=== PATIENT | female | born 1965 | race Caucasian/White ===

== ENCOUNTER 2019-02-24 10:10 | Observation (INO) | payer OTHER, SELFPAY ==
--- NOTE | ~2019-02-24 | XR_ITS ---
EXAMINATION: XR abdomen/kub 1V DATE: 02/24/2019 10:30 INDICATION: Foreign body. Pill contained inserted into the rectum. TECHNIQUE: A supine view of the abdomen on 2 radiographs was obtained. COMPARISON: 02/24/2019 at 4:59 AM FINDINGS: The cylindrical metallic foreign body projects over the central pelvis slightly more cephalad into th e left relative to its position on the prior study. This appears to at least in part to increasing di stention of the bladder. No interval change in moderate amount of stool scattered throughout the prox imal colon. No dilated loops of gas-filled bowel to suggest obstruction. IMPRESSION: 1. No significant interval change in a 5 cm diameter corresponding to metallic foreign body which lik gualberto remains at the rectum or distal sigmoid colon. Reviewed, dictated and finalized at location A. S TRANSFER CLERK IMPRESSION: 1. No significant interval change in a 5 cm diameter corresponding to metallic foreign body which likely remains at the rectum or distal sigmoid colon.
--- NOTE | 2019-02-24 10:14 | ED.GENADULT ---
HPI - General Adult General Chief complaint: Skin/Abscess/Foreign Body Stated complaint: Foreign Body Time Seen by Provider: 02/24/19 10:12 Source: patient and RN notes reviewed Mode of arrival: ambulatory Limitations: no limitations History of Present Illness HPI narrative: Pt is a 54 y/o female who presents to the ED, via law enforcement, with c/o a foreign object inside her rectum. Law enforcement states the body scanner at the police station showed there was a foreign object located inside the pt that should not be present, which had been done this morning. The pt reported she had ?a can of Fentanyl stuck in my butt.? Upon examination at the ED, the bottle could not be seen in the rectum. However, The pt denies the bottle being in the vagina. She denies any pain anywhere else in her body. complaint: Foreign object in rectum Onset (ago): hour(s) (this morning) Radiation: non-radiation Associated symptoms: denies other symptoms Related Data Home Medications Medication Instructions Recorded Confirmed No Home Medications 02/24/19 02/24/19 Allergies Allergy/AdvReac Type Severity Reaction Status Date / Time No Known Allergies Allergy Verified 02/24/19 04:55 Review of Systems Review of Systems: All systems reviewed & are unremarkable except as noted in HPI and below Constitutional: Constitutional: Denies other (pain anywhere else in her body) Gastrointestinal: Gastrointestinal: Reports other (foreign object in rectum) [facility] Past Medical History Medical History (Updated 02/24/19 @ 17:44 by Dae Rivera MD) Breast implant leak Narcotic abuse snorts fentanyl, last used yesterday Surgical History Surgical History (Updated 02/24/19 @ 16:11 by Imani Osorio NP) History of appendectomy History of lumpectomy Family History Family History (Updated 02/24/19 @ 16:12 by Imani Osorio NP) Mother Cancer Father Acute myocardial infarction Sibling First degree murder Other Breast cancer Social History Social History (Updated 02/24/19 @ 16:13 by Imani Osorio NP) Social History: The patient stated that she is living in the home that she grew up in and her mother moved out. She has 3 adult children. She is currently working at a [employer]. She has no power employment law attorney. She is a full code. Patient told me that the drugs that were in her rectum did not belong to her and that she had not used drugs in many years since she was a teenager. She she told me that she has been in trouble for drugs in the past. She showed ER that she last used fentanyl yesterday. She is twice. Smoking packs per day: 1 Smoking cigarettes per day: 20.0 Years smoked: 18 Smoking pack-years: 18.00 Smoking status: Current every day smoker Tobacco type: cigarettes Alcohol intake: never Substance use: current Substance use type: tranquilizers Other substance usage details: Fentanyl Living arrangements: with family Gender identity (if verbalized by the patient): Female Spiritual care concerns: No Agree to blood products: Yes Exam Narrative: Exam Narrative: GENERAL: Well-appearing, well-nourished, and in no acute distress. HEAD: Normocephalic, atraumatic. ENT: Mucous membranes moist. CHEST: Clear to auscultation. No respiratory distress. HEART: Regular rate and rhythm. Normal peripheral pulses. ABDOMEN: Soft, nontender, nondistended. : Normal external genitalia, normal-appearing cervix and vaginal vault free of foreign body. No discharge or vaginal bleeding. EXTREMITIES: Normal range of motion. No edema. SKIN: Warm, dry, no rash. NEURO: Alert and oriented x3. Course Consultations Consultation #1: Discussed case with hospitalist. Accepted for admission. Date: 02/24/19 Time: 11:32 Vital Signs Vital signs: Vital Signs Temperature 98.0 F 02/24/19 10:17 Pulse Rate 84 02/24/19 10:17 Respiratory Rate 16 02/24/19 10:17 Blood Pressure 134/91 H 02/24/19
[2019-02-24 10:17] VITALS: BP 134/91; PULSE 84; RESP 16; TEMP 36.7; O2SAT 98
[2019-02-24] MEDS: PEG (High)/E-LYTE SOLN 4,000 ML BTL 4000 ML PO (11:29)
--- NOTE | 2019-02-24 12:49 | PC.NURSE ---
no BM yet. patient has drank appx half of the prep but had fallen asleep. woke her and encouraged her to continue drinking
--- NOTE | 2019-02-24 13:37 | ADMGEN ---
This patient, Anaya Hawk, was admitted to 2 Medical Room 255-01. Patient/family oriented to hospital policies and general routines including ID bracelet, bed and alarms, visiting hours, pain management, procedures, bathroom and other care routines, personal items, smoking policy, room service/diet, and visiting hours. Valuables list has been completed. Information on how to activate the Rapid Response Team has been discussed. Patient/Family are encouraged to report perceived risks to care and to ask questions if they do not understand what they are told or what they should do.
[2019-02-24 14:00] VITALS: BP 140/87; PULSE 88; RESP 16; TEMP 36.5; O2SAT 96
--- NOTE | 2019-02-24 15:31 | WPDGIPROGNO ---
Progress Note: A&P Additional Plan pt passed foreign body with laxative prep.. will allow diet, disposition for discharge per primary care, hospitallist service Subjective Date/time seen: 02/24/19 15:31 Objective Data Vital Signs Vital Signs: Vital Signs - 24 hr 02/24/19 10:17 02/24/19 14:00 Temperature 36.7 C 36.5 C Pulse Rate 84 88 Respiratory Rate 16 16 Blood Pressure 134/91 H 140/87 Pulse Oximetry 98 96 Meds/Results Medications: Active Medications Generic Name Dose Route Start Last Admin Trade Name Freq PRN Reason Stop Dose Admin Acetaminophen 650 mg in 65 mls @ 260 mls/hr 02/24/19 11:44 Ofirmev 650 Mg Ivpb IVPB 02/25/19 11:45 Q6H PRN Mild Pain (1-3) or Fever Ondansetron HCl 4 mg 02/24/19 11:44 Zofran Inj IV PUSH Q4H PRN Nausea Radiology Results: ITS Impressions Abdomen X-Ray 02/24/19 10:38 IMPRESSION: 1. No significant interval change in a 5 cm diameter corresponding to metallic foreign body which likely remains at the rectum or distal sigmoid colon.
--- NOTE | 2019-02-24 16:00 | PM.IMHP ---
H&P: HPI History of Present Illness Chief complaint: rectal foreign body Narrative: Anaya Hawk is a 54 year old female who was brought in early this morning. The patient stated that her friend was parked in the handicap parking space at [facility] and the maintenance scheduler turned on the lights and her friend was trying to hide drugs. She stated that her friend told her to put of canister upper rectum. Her friend was doing the same. The patient stated that she has not used drugs in many years. According to the ER notes patient stated that she had something in her behind that did not belong to her. Abdominal x-ray was read as 1.5 cm diameter cylinder metallic foreign body projecting over the rectum. Dr. Dillard was a consult who saw the patient. A flex sigmoidoscopy with anesthesia was performed and the object was not obtained. The patient was given prep for colonoscopy (GoLYTELY). The patient then passed the object and it was placed in the safe here at the hospital. The patient is hungry and would like to eat at this time she is awake and talkative. I spoke with my collaborative about patient's discharge. Patient is okay to be discharged to home at this time. I was told by nursing supervisor refractory products that the container was found intact. Patient is awake although she is somewhat sleepy. She is able to answer questions appropriately. Patient was admitted for brief period time to retrieve this item. Date of service is 02/24/2019. This is a short-stay summary. 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 Musculoskeletal: Musculoskeletal: Reports no additional musculoskeletal complaints Integumentary/Breasts: Skin/Breast: Reports system reviewed and no additional complaints, except as docu and Reports as per HPI Neurologic: Reports system reviewed and no additional complaints, except as documented, Reports as per HPI and Reports Normal hearing present Psychiatric: Psychiatric: Reports no additional psychiatric complaints and Reports as per HPI Endocrine: Endocrine: Reports no additional endocrine complaints Hematologic/Lymphatic: Hematologic/Lymphatic: Reports no additional hematologic/lymphatic complaints Allergic/Immunologic: Allergic/Immunologic: Reports no additional allergic/immunologic complaints [facility] Past Medical History Medical History (Updated 02/24/19 @ 16:11 by Imani Osorio NP) Breast implant leak Narcotic abuse snorts fentanyl, last used yesterday Surgical History Surgical History (Updated 02/24/19 @ 16:11 by Imani Osorio NP) History of appendectomy History of lumpectomy Family History Family History (Updated 02/24/19 @ 16:12 by Imani Osorio NP) Mother Cancer Father Acute myocardial infarction Sibling First degree murder Other Breast cancer Social History Social History (Updated 02/24/19 @ 16:13 by Imani Osorio NP) Social History: The patient stated that she is living in the home that she grew up in and her mother moved out. She has 3 adult children. She is currently working at a [employer]. She has no power consumer attorney. She is a full code. Patient told me that the drugs that were in her rectum did not belong to her and that she had not used
== END 2019-02-24 17:04 | disposition home or self-care (01) ==
LOC: ANHED 11:47 → ANH2MED 12:54
PROVIDERS: Admitting Provider Internal Medicine; Emergency Provider Emergency Medicine; Visit Provider Internal Medicine
DX: T18.5XXA Foreign body in anus and rectum, initial encounter (principal); X58.XXXA Exposure to other specified factors, initial encounter; F11.10 Opioid abuse, uncomplicated; F17.210 Nicotine dependence, cigarettes, uncomplicated; Z98.890 Other specified postprocedural states
CPT/HCPCS: 74018; 74021; 99285; A9270; G0378; J2001; J2704; J7120

== ENCOUNTER 2023-12-30 02:05 | Emergency (ER) | payer OTHER, SELFPAY ==
--- NOTE | 2023-12-30 02:13 | ECG_ITS ---
Test Date: 2023-12-30 02:13:18 Measurements Intervals [place] Rate: 83 P: 75 [place]: 139 QRS: 68 QRSD: 82 T: 68 QT: 395 QTc: 465 Interpretive Statements SINUS RHYTHM VOLTAGE CRITERIA FOR LVH BASELINE ARTIFACT- I, II, III, AVR, AVL, AVF BORDERLINE ECG No previous ECG available for comparison Electronically Signed On 12-30-2023 13:52:30 [employer]AND BUFFER by Jase Benoit D.O.
--- NOTE | 2023-12-30 03:39 | ER_ITS ---
This report was moved to the correct visit on 01/13/2024. The original report was signed by Thomas Segovia MD on 12/30/23 0352. HPI - Chest Pain General Chief Complaint: Chest Pain Source: patient Mode of arrival: EMS Limitations: no limitations History of Present Illness HPI narrative: 58-year-old with a history of fentanyl abuse was brought in by EMS with the complaints of chest pain. Patient states that she has bad around had chest with started soon after she got arrested by police. She denies any shortness of breath. He has no previous history of CAD. MD complaint: chest pain Timing of current episode: constant Onset: associated with drug use and other (During arrest ) Pain location: other (entire chest ) Pain radiation: none Quality: tightness Relieving factors: nothing Exacerbating factors: nothing Risk Factors Coronary artery disease risk factors: none Related Data Home Medications Medication Instructions Recorded Confirmed No Home Medications 02/24/19 02/24/19 Allergies Allergy/AdvReac Type Severity Reaction Status Date / Time No Known Allergies Allergy Verified 02/24/19 04:55 Review of Systems Review of Systems: All systems reviewed & are unremarkable except as noted in HPI and below Constitutional: Constitutional: Reports no additional constitutional complaints Eyes: Eyes: Reports no additional eye complaints ENT: Reports system reviewed and no additional complaints, except as documented Cardiovascular: Cardiovascular: Reports as per HPI Respiratory: Respiratory: Reports no additional respiratory complaints Musculoskeletal: Musculoskeletal: Reports no additional musculoskeletal complaints Neurologic: Reports system reviewed and no additional complaints, except as documented Endocrine: Endocrine: Reports no additional endocrine complaints PMFSH Past Medical History Medical History Breast implant leak Narcotic abuse snorts fentanyl, last used yesterday Surgical History Surgical History History of appendectomy History of lumpectomy Family History Family History Mother Cancer Father Acute myocardial infarction Sibling First degree murder Other Breast cancer Social History Social History Social History: The patient stated that she is living in the home that she grew up in and her mother moved out. She has 3 adult children. She is currently working at a [employer]. She has no power employment attorney. She is a full code. Patient told me that the drugs that were in her rectum did not belong to her and that she had not used drugs in many years since she was a teenager. She she told me that she has been in trouble for drugs in the past. She showed ER that she last used fentanyl yesterday. She is twice. Smoking packs per day: 1 Smoking cigarettes per day: 20.0 Years smoked: 18 Smoking pack-years: 18.00 Smoking status: Current every day smoker Tobacco type: cigarettes Alcohol intake: never Substance use: current Substance use type: tranquilizers Other substance usage details: Fentanyl Living arrangements: with family Gender identity (if verbalized by the patient): Female Spiritual care concerns: No Agree to blood products: Yes Exam Narrative: GENERAL: Well-appearing, well-nourished, and in no acute distress. HEAD: Normocephalic, atraumatic. EYES: PERRLA and EOMI. . NECK: Supple. CHEST: Clear to auscultation. No respiratory distress. HEART: Regular rate and rhythm. No murmur heard. Normal peripheral pulses. ABDOMEN: Soft, nontender, nondistended, normal active bowel sounds. EXTREMITIES: Normal range of motion. No edema. multiple scars on the left fore arm SKIN: Warm, dry, no rash. NEURO: No focal deficits. Alert and oriented x3. PSYCH: Normal mood and affect. MDM - Chest Pain Differential Diagnosis Differential diagnosis: Likely stable angina, unstable angina pectoris, atypical chest pain, chest pain and other (anxiety) Medical Records Data Attestation: I reviewed the patient's medical records. Lab Data Attestation: I reviewed the patient's lab results. ECG Data EKG #1: ECG completion date: 12/30/23 ECG completion time: 02:13 EKG Interpretation: normal rate (83), no ectopy, no ST changes, normal QT and NL axis Discharge Plan Discharge Clinical Impression: Chest pain, Narcotic abuse Patient Disposition: Home, Self-Care Condition: Stable Instructions: Chest Pain (ED) Prescriptions: No Action No Home Medications Follow-up/Referrals: UNKNOWN,DOCTOR [Primary Care Provider] - Matt Ruelas MD [Physician] - Time of Disposition: 03:51 This report may have been done utilizing a voice recognition system. Attempts have been made to correct errors. However, there may be uncorrected grammatical, spelling, and recognition errors present. Report Initialized date/time: Thomas Segovia MD 12/30/23 / 0339 Electronically signed by: Thomas Segovia MD 12/30/23 0352 [facility]
[2023-12-30 03:45] LABS: Alanine Aminotransferase 20 U/L (6-35); Albumin Level 4.2 g/dL (3.5-5.1); Alkaline Phosphatase 72 U/L (38-126); Anion Gap 6 mmol/L (4-12); Aspartate Amino Transferase 37 U/L (14-36); Bilirubin,Total 0.7 mg/dL (0.2-1.3); Blood Urea Nitrogen 11 mg/dL (7-17); Calcium 8.9 mg/dL (8.4-10.2); Carbon Dioxide 28 mmol/L (22-30); Chloride 105 mmol/L (98-107); Estimated Glomerular Filt Rate > 60; Glucose 120 mg/dL (65-110); Potassium 3.8 mmol/L (3.4-5.0); Sodium 139 mmol/L (137-145); Troponin I < 0.012 ng/mL (0.000-0.034)
--- NOTE | 2023-12-30 03:52 | PC.NURSE ---
see downtime charting
[2023-12-30 03:53] VITALS: O2SAT 98
[2023-12-30 03:53] LABS: Add Urine Microscopic? YES; Appearance Urine Clear (Clear); Bacteria Urine None Seen /hpf; Bilirubin Urine Negative (Negative); Blood Urine Negative (Negative); Color Urine Dark Yellow (Yellow); Glucose Urine UA Negative (Negative); Ketones Urine Trace mg/dL (Negative); Leukocyte Esterase Ur Trace LEU/UL (Negative); Nitrate Urine Negative (Negative); Non Pathogenic Casts 0-2; Protein Urine Trace mg/dL (Negative); RBC Urine 0-2 /hpf (0-2); Specific Grav Ur 1.024 (1.001-1.035); Squamous Epithelial Cell Urine None Seen /hpf (Few); WBC Urine 0-5 /hpf (0-3)
[2023-12-30 03:56] LABS: Basophils Percent Auto 1.1 % (0.2-1.2); Eosinophils Absolute Auto 0.1 K/mm3 (0-0.3); Eosinophils Percent Auto 1.6 % (0-4.4); Hematocrit 40.6 % (37.0-47.0); Immature Granulocyte Absolute 0.02 K/mm3 (0.00-0.031); Immature Granulocyte Percent A 0.5 % (0-0.5); Lymphocytes Absolute Auto 0.76 K/mm3 (0.9-3.2); Lymphocytes Percent Auto 20.2 % (18.3-44.2); Mean Corpuscular HGB Conc 34.5 g/dl (32-36); Mean Corpuscular Hemoglobin 30.4 pg (26-34); Mean Corpuscular Volume 88.1 fl (80-100); Mean Platelet Volume 10.3 fl (7.4-10.4); Monocytes Absolute Auto 0.5 K/mm3 (0.1-0.6); Monocytes Percent Auto 12.2 % (2.6-8.5); Neutrophils Absolute Auto 2.4 K/mm3 (1.3-6.7); Neutrophils Percent Auto 64.4 % (45.5-73.1); Platelet Count Result 203 k/mm3 (150-375); Red Blood Count 4.61 M/mm3 (4.2-5.4); Red Cell Distribution Width 12.5 % (11.5-14.5); White Blood Count 3.8 K/mm3 (4.5-10.0)
[2023-12-30 04:36] VITALS: BP 161/79; PULSE 80; RESP 16; O2SAT 98
--- NOTE | 2024-01-18 06:08 | PC.NURSE ---
see downtime charting.
== END 2023-12-30 03:59 | disposition home or self-care (01) ==
PROVIDERS: Emergency Provider Family Medicine
DX: R07.9 Chest pain, unspecified (principal); F11.10 Opioid abuse, uncomplicated; F17.210 Nicotine dependence, cigarettes, uncomplicated
CPT/HCPCS: 36415; 80053; 81001; 84484; 85025; 93005; 99281; 99284

== ENCOUNTER 2024-01-01 12:03 | Emergency (ER) | payer OTHER, SELFPAY ==
[2024-01-01 12:04] VITALS: PULSE 67; RESP 16; TEMP 36.6; O2SAT 96
[2024-01-01 12:10] VITALS: RESP 16
--- NOTE | 2024-01-01 12:10 | ECG_ITS ---
Test Date: 2024-01-01 12:12:14 Measurements Intervals [place] Rate: 65 P: 14 [place]: 120 QRS: 61 QRSD: 79 T: 57 QT: 422 QTc: 440 Interpretive Statements SINUS RHYTHM VOLTAGE CRITERIA FOR LVH BORDERLINE ECG Compared to ECG 12/30/2023 02:13:18 No significant changes Electronically Signed On 01-01-2024 16:17:58 BILLBOARD INSTALLER by Jase Benoit D.O.
--- NOTE | 2024-01-01 12:28 | ED_ITS ---
HPI - General Adult General Chief complaint: Unspecified Stated complaint: unwell Time Seen by Provider: 01/01/24 12:17 History of Present Illness HPI narrative: Patient 58-year-old female who presents emergency department with chief complaint of chest and the body aches. The patient reports that she was at the police station turn herself in for warrant and reports that she started having chest pain also reports she has a headache patient reports that she does have prior history of fentanyl abuse but reports that she has not used in a long time a week again patient reports that she has had no fever reports no cough reports she has been treated for pneumonia recently the patient reports she is also undergoing treatment for hepatitis Related Data Home Medications Medication Instructions Recorded Confirmed No Home Medications 02/24/19 02/24/19 Allergies Allergy/AdvReac Type Severity Reaction Status Date / Time No Known Allergies Allergy Verified 02/24/19 04:55 Review of Systems Review of Systems: A 10 system review of systems was completed on the patient and is negative except for what is stated in the HPI. Nursing and ancillary documentation was reviewed. [facility] Past Medical History Medical History Breast implant leak Narcotic abuse snorts fentanyl, last used yesterday Surgical History Surgical History History of appendectomy History of lumpectomy Family History Family History Mother Cancer Father Acute myocardial infarction Sibling First degree murder Other Breast cancer Social History Social History Social History: The patient stated that she is living in the home that she grew up in and her mother moved out. She has 3 adult children. She is currently working at a [employer]. She has no power corporate attorney. She is a full code. Patient told me that the drugs that were in her rectum did not belong to her and that she had not used drugs in many years since she was a teenager. She she told me that she has been in trouble for drugs in the past. She showed ER that she last used fentanyl yesterday. She is twice. Smoking packs per day: 1 Smoking cigarettes per day: 20.0 Years smoked: 18 Smoking pack-years: 18.00 Smoking status: Current every day smoker Tobacco type: cigarettes Alcohol intake: never Substance use: current Substance use type: tranquilizers Other substance usage details: Fentanyl Living arrangements: with family Gender identity (if verbalized by the patient): Female Spiritual care concerns: No Agree to blood products: Yes Exam Narrative: GENERAL: Well-appearing, well-nourished, and in no acute distress. HEAD: Normocephalic, atraumatic. EYES: PERRLA and EOMI. ENT: Nares clear, no rhinorrhea or epistaxis. Mucous membranes moist. NECK: Supple. CHEST: Clear to auscultation. No respiratory distress. HEART: Regular rate and rhythm. No murmur heard. Normal peripheral pulses. ABDOMEN: Soft, nontender, nondistended, normal active bowel sounds. EXTREMITIES: Normal range of motion. No edema. SKIN: Warm, dry, no rash. NEURO: No focal deficits. Alert and oriented x3. PSYCH: Normal mood and affect. Course Vital Signs Vital signs: Vital Signs Temperature 36.6 C 01/01/24 12:04 Pulse Rate 67 01/01/24 12:04 Respiratory Rate 16 01/01/24 12:04 Pulse Oximetry 96 01/01/24 12:04 Oxygen Delivery Room Air 01/01/24 12:04 Temperature 36.6 C 01/01/24 12:04 Pulse Rate 67 01/01/24 12:04 Respiratory Rate 16 01/01/24 12:04 Pulse Oximetry 96 01/01/24 12:04 Oxygen Delivery Room Air 01/01/24 12:04 Medical Decision Making [facility] Narrative Medical decision making narrative: Differential diagnosis includes ACS, pneumonia, situational chest pain due to shelter EKG showed no acute ischemic changes Initial troponin was negative The patient decided that she did not want to stay and wait for a repeat troponin and has chosen to leave without the repeat troponin Vital Signs Vital Signs: Vital Signs Temperature 36.6 C 01/01/24 12:04 Pulse Rate 67 01/01/24 12:04 Respiratory Rate 16 01/01/24 12:04 Pulse Oximetry 96 01/01/24 12:04 Oxygen Delivery Room Air 01/01/24 12:04 Temperature 36.6 C 01/01/24 12:04 Pulse Rate 67 01/01/24 12:04 Respiratory Rate 16 01/01/24 12:04 Pulse Oximetry 96 01/01/24 12:04 Oxygen Delivery Room Air 01/01/24 12:04 Lab Data 01/01/24 12:51 01/01/24 12:51 Labs: Lab Results 01/01/24 Range/Units 12:51 WBC 3.6 L (4.5-10.0) K/mm3 RBC 4.89 (4.2-5.4) M/mm3 Hgb 15.3 H (12.0-15.0) g/dL Hct 43.5 (37.0-47.0) % MCV 89.0 (80-100) fl MCH 31.3 (26-34) pg MCHC 35.2 (32-36) g/dl RDW 12.9 (11.5-14.5) % Plt Count 212 (150-375) k/mm3 MPV 9.3 (7.4-10.4) fl Immature Gran % (Auto) 0.3 (0-0.5) % Neut % (Auto) 56.8 (45.5-73.1) % Lymph % (Auto) 28.9 (18.3-44.2) % [place] % (Auto) 12.9 H (2.6-8.5) % Eos % (Auto) 0.3 (0-4.4) % Baso % (Auto) 0.8 (0.2-1.2) % Lymph # (Auto) 1.03 (0.9-3.2) K/mm3 [place] # (Auto) 0.5 (0.1-0.6) K/mm3 Eos # (Auto) 0.0 (0-0.3) K/mm3 Baso # (Auto) 0.0 (0.0-0.1) K/mm3 Abs Immat Gran (auto) 0.01 (0.00-0.031) K/mm3 Absolute Neuts (auto) 2.0 (1.3-6.7) K/mm3 Absolute Nucleated RBC 0.000 (0.0-0.012) K/mm3 Nucleated RBC % 0.0 (0.0-0.2) % PT 12.7 (11.1-14.7) Seconds INR 0.9 APTT 71.1 H (22.3-36.8) Seconds Sodium 140 (137-145) mmol/L Potassium 4.2 (3.4-5.0) mmol/L Chloride 104 (98-107) mmol/L Carbon Dioxide 27 (22-30) mmol/L Anion Gap 9 (4-12) mmol/L BUN 14 (7-17) mg/dL Creatinine 1.10 H (0.7-1.0) mg/dL Estim Creat Clear Calc 43 ml/min Estimated GFR 51 L (59 - ) Glucose 106 (65-110) mg/dL Calcium 9.9 (8.4-10.2) mg/dL Total Bilirubin 2.2 H (0.2-1.3) mg/dL AST 43 H (14-36) U/L ALT 24 (6-35) U/L Alkaline Phosphatase 85 (38-126) U/L Troponin I < 0.012 (0.000-0.034) ng/mL NT-Pro-B Natriuret Pep Pending Total Protein 9.0 H (6.3-8.2) g/dL Albumin 4.8 (3.5-5.1) g/dL Lipase 66 (23-300) U/L Procalcitonin Pending Discharge Plan Discharge Clinical Impression: Atypical chest pain Patient Disposition: Home, Self-Care Condition: Stable Instructions: Antibiotic Form, Chest Pain (DC) Prescriptions: No Action No Home Medications Follow-up/Referrals: Matt Ruelas MD [Physician] - UNKNOWN,DOCTOR [Primary Care Provider] - Time of Disposition: 13:29
[2024-01-01 12:59] LABS: Basophils Percent Auto 0.8 % (0.2-1.2); Eosinophils Percent Auto 0.3 % (0-4.4); Hematocrit 43.5 % (37.0-47.0); Hemoglobin 15.3 g/dL (12.0-15.0); Immature Granulocyte Absolute 0.01 K/mm3 (0.00-0.031); Immature Granulocyte Percent A 0.3 % (0-0.5); Lymphocytes Absolute Auto 1.03 K/mm3 (0.9-3.2); Lymphocytes Percent Auto 28.9 % (18.3-44.2); Mean Corpuscular HGB Conc 35.2 g/dl (32-36); Mean Corpuscular Hemoglobin 31.3 pg (26-34); Mean Platelet Volume 9.3 fl (7.4-10.4); Monocytes Absolute Auto 0.5 K/mm3 (0.1-0.6); Monocytes Percent Auto 12.9 % (2.6-8.5); Neutrophils Percent Auto 56.8 % (45.5-73.1); Platelet Count Result 212 k/mm3 (150-375); Red Blood Count 4.89 M/mm3 (4.2-5.4); Red Cell Distribution Width 12.9 % (11.5-14.5); White Blood Count 3.6 K/mm3 (4.5-10.0)
[2024-01-01 13:00] VITALS: BP 138/81; PULSE 78; RESP 16; O2SAT 97
[2024-01-01 13:10] LABS: INR 0.9; Prothrombin Time 12.7 Seconds (11.1-14.7)
[2024-01-01 13:11] LABS: Alanine Aminotransferase 24 U/L (6-35); Albumin Level 4.8 g/dL (3.5-5.1); Alkaline Phosphatase 85 U/L (38-126); Anion Gap 9 mmol/L (4-12); Aspartate Amino Transferase 43 U/L (14-36); Bilirubin,Total 2.2 mg/dL (0.2-1.3); Blood Urea Nitrogen 14 mg/dL (7-17); Calcium 9.9 mg/dL (8.4-10.2); Carbon Dioxide 27 mmol/L (22-30); Chloride 104 mmol/L (98-107); Estimated CRCL calculation 43 ml/min; Estimated Glomerular Filt Rate 51; Glucose 106 mg/dL (65-110); Lipase 66 U/L (23-300); Potassium 4.2 mmol/L (3.4-5.0); Sodium 140 mmol/L (137-145)
[2024-01-01 13:12] LABS: Partial Thromboplastin Time 71.1 Seconds (22.3-36.8)
[2024-01-01] MEDS: ACETAMINOPHEN 500 MG TABLET 1000 MG PO (13:13)
[2024-01-01 13:15] VITALS: BP 132/90; PULSE 93; RESP 16; O2SAT 96
[2024-01-01 13:24] LABS: Troponin I < 0.012 ng/mL (0.000-0.034)
[2024-01-01 13:30] LABS: NT Pro B Type Natriuretic Pept 201 pg/mL (19.9-100)
[2024-01-01 13:35] VITALS: BP 136/82; PULSE 65; RESP 18; O2SAT 99
[2024-01-01 13:47] LABS: Procalcitonin 0.1 ng/mL
== END 2024-01-01 13:36 | disposition home or self-care (01) ==
PROVIDERS: Emergency Provider Emergency Medicine
DX: R07.89 Other chest pain (principal); F17.210 Nicotine dependence, cigarettes, uncomplicated; R94.31 Abnormal electrocardiogram [ECG] [EKG]
CPT/HCPCS: 36415; 80053; 83690; 83880; 84145; 84484; 85025; 85610; 85730; 93005; 99284; A9270

== ENCOUNTER 2024-04-22 03:14 | Emergency (ER) | payer OTHER, SELFPAY ==
[2024-04-22 03:19] VITALS: BP 144/95; PULSE 94; RESP 16; TEMP 36.6; O2SAT 96
--- NOTE | 2024-04-22 03:32 | ED.LOWEXIN ---
HPI - Extremity Injury (Lower) General Chief Complaint: Extremity Injury, Lower Stated Complaint: head pain, knee pain, right eye pain/twitching Time Seen by Provider: 04/22/24 03:31 History of Present Illness HPI Narrative: Patient is a 51-year-old female presents to the ER after running into a door and falling on the ground while being chased by police. EMS reports she was at the police station d/t possession of Fentanyl buttons but requested to be evaluated in the ER. She endorses left knee pain with know new scrapes or swelling. Patient also endorses right upper forehead tenderness and right eye pain from where she ran into a door. She reports she has complete left eye vision loss from a traumatic injury years ago and decreased right eye vision at baseline. Patient's chart indicates she has a history of hepatitis-C, thyroid disorder, substance abuse. Denies LOC, GARCIA, or tenderness to R orbital socket. Related Data Home Medications ?Medication ?Instructions ?Recorded ?Confirmed ?Last Taken ?Type No Home Medications 02/24/19 02/24/19 Unknown History Allergies Allergy/AdvReac Type Severity Reaction Status Date / Time No Known Allergies Allergy Verified 02/24/19 04:55 Review of Systems Review of Systems: All systems reviewed & are unremarkable except as noted in HPI and below PMFSH Past Medical History Medical History Breast implant leak Narcotic abuse snorts fentanyl, last used yesterday Surgical History Surgical History History of lumpectomy History of appendectomy Family History Family History Mother Cancer Father Acute myocardial infarction Sibling First degree murder Other Breast cancer Social History Social History Social History: The patient stated that she is living in the home that she grew up in and her mother moved out. She has 3 adult children. She is currently working at a [employer]. She has no power trade mark attorney. She is a full code. Patient told me that the drugs that were in her rectum did not belong to her and that she had not used drugs in many years since she was a teenager. She she told me that she has been in trouble for drugs in the past. She showed ER that she last used fentanyl yesterday. She is twice. Smoking packs per day: 1 Smoking cigarettes per day: 20.0 Years smoked: 18 Smoking pack-years: 18.00 Smoking status: Current every day smoker Tobacco type: cigarettes Alcohol intake: never Substance use: current Substance use type: tranquilizers Other substance usage details: Fentanyl Living arrangements: with family Gender identity (if verbalized by the patient): Female Spiritual care concerns: No Agree to blood products: Yes Exam Narrative: GENERAL: Well appearing, well-nourished, non-toxic, in no acute distress. HEAD: Normocephalic, mild redness to R forehead, no palpable bumps EYES: Pt's L eye tracks movement but has a clouded iris and pupil (baseline), Pt's R eye has mild redness around the iris but no visible drainage or abrasions to the site (redness most likely from her rubbing it), she is able to track appropriately, R pupil PERRLA + NECK: Supple. No adenopathy, no masses. RESPIRATORY: Airway patent, respirations nonlabored. Clear to auscultation bilaterally, no rales, rhonchi, wheezing. CARDIOVASCULAR: Regular rate and rhythm without murmurs, rubs, or gallops. Peripheral pulses 2+ and equal bilaterally. ABDOMINAL: Soft, nontender, nondistended, no hepatosplenomegaly. Normoactive BS. MUSCULOSKELETAL: Moves all extremities. Strength/ROM intact without gross deformities. SKIN: Warm, dry, normal color. No rashes. No edema or visible cornejo on L knee. NEURO: A&O X3. Speech clear. No ataxic movements. PSYCHIATRIC: Tearful. Course Vital Signs Vital signs: Vital Signs Temperature 36.6 C 04/22/24 03:19 Pulse Rate 94 04/22/24 03:19 Respiratory Rate 16 04/22/24 03:19 Blood Pressure 144/95 H 04/22/24 03:19 Pulse Oximetry 96 04/22/24 03:19 Oxygen Delivery Room Air 04/22/24 03:19 Temperature 36.6 C 04/22/24 03:19 Pulse Rate 94 04/22/24 03:19 Respiratory Rate 16 04/22/24 03:19 Blood Pressure 144/95 H 04/22/24 03:19 Pulse Oximetry 96 04/22/24 03:19 Oxygen Delivery Room Air 04/22/24 03:19 MDM - Extremity Injury (Lower) MDM Narrative Medical decision making narrative: Patient is a 51-year-old female presents to the ER after running into a door and falling on the ground while being chased by police. She endorses left knee pain with know new scrapes or swelling. Patient also endorses right upper forehead tenderness and right eye pain from where she ran into a door. She reports she has complete left eye vision loss from a traumatic injury years ago and decreased right eye vision at baseline. Patient's chart indicates she has a history of hepatitis-C, thyroid disorder, substance abuse. Labs Ordered: None necessary Imaging Ordered: R thumb x-ray Medications Ordered: Toradol 60 mg IM, Tetracaine OP, Fluorescein OP Results: Pt's R thumb x-ray indicates no acute abnormalities. No foreign body or scratches to pt's R eye. Diagnosis: Left knee pain, right forehead pain, right eye pain, R thumb pain Consults: Pt has an director of market analysis at [facility] whom she can follow-up with as an outpatient. Patient Education/Shared MDM: 0400-right eye exam performed with Fluorescein, tetracaine and Wood's lamp. No acute abnormality upon examination 0420-Patient endorses right thumb pain. She reports she initially injured her thumb approximately 2 weeks ago but re-injured it tonight. Will x-ray site. Results shared with patient. She endorses mild improvement following medication administration. Patient strongly advised to call her director of market analysis and schedule a follow-up appointment as soon as possible. She will be discharged home with no new prescriptions. Strict return precautions provided. Patient verbalized understanding is in agreement with plan. Vital signs stable at time of discharge. All questions answered. Differential Diagnosis Differential diagnosis: Likely other (L knee abrasion, L knee pain, R forehead abrasion, visual changes following fall, R thumb dislocation, R thumb fracture) Imaging Data Attestation: I personally reviewed and interpreted this imaging study as follows: My impression: No acute abnormalities on right hand x-ray Discharge Plan Discharge Clinical Impression: Acute pain of left knee, Forehead pain, Forehead abrasion, Eye redness, Narcotic abuse, Injury of right thumb Patient Disposition: Home, Self-Care Condition: Stable Instructions: Antibiotic Form Additional Instructions: Please return to the ER with an worsening symptoms. Follow-up with primary care provider in the next 2-3 days and ophthalmology as soon as possible. Take all regularly scheduled medications as prescribed. Patient Language: Guyanese Prescriptions: No Action No Home Medications Follow-up/Referrals: UNKNOWN,DOCTOR [Primary Care Provider] - Time of Disposition: 04:44
[2024-04-22] MEDS: FLUORESCEIN SOD 1 MG/STRIP EACH EYE (04:07)
[2024-04-22] MEDS: KETOROLAC (*BKC) 60 MG/2 ML VIAL IM (04:07)
[2024-04-22] MEDS: TETRACAINE HCL 0.5% OPHTH SOLN 4 ML BTL 1 DROP EACH EYE (04:07)
== END 2024-04-22 05:24 | disposition home or self-care (01) ==
PROVIDERS: Emergency Provider Registered Nurse
DX: S00.81XA Abrasion of other part of head, initial encounter (principal); S69.91XA Unspecified injury of right wrist, hand and finger(s), initial encounter; M25.562 Pain in left knee; H57.89 Other specified disorders of eye and adnexa; F11.10 Opioid abuse, uncomplicated; E07.9 Disorder of thyroid, unspecified; H54.7 Unspecified visual loss; F17.210 Nicotine dependence, cigarettes, uncomplicated; Z86.19 Personal history of other infectious and parasitic diseases; M18.9 Osteoarthritis of first carpometacarpal joint, unspecified; M19.041 Primary osteoarthritis, right hand; W18.09XA Striking against other object with subsequent fall, initial encounter
CPT/HCPCS: 73130; 96372; 99283; J1885

== ENCOUNTER 2024-06-19 21:00 | Emergency (ER) | payer OTHER, SELFPAY ==
[2024-06-20 00:01] VITALS: BP 171/99; PULSE 110; RESP 20; TEMP 36.8; O2SAT 98
--- NOTE | 2024-06-20 00:17 | ED.ABDPAIN ---
HPI - Abdominal Pain General Chief Complaint: Abdominal Pain Stated Complaint: abdominal pain Time Seen by Provider: 06/20/24 00:02 History of Present Illness HPI narrative: 59-year-old female presenting in police custody for medical clearance. Patient has been complaining of right-sided abdominal pain for about 1 week. Patient is not in any acute distress, describes a pain that feels like a ?hot knife ?and states that it feels like a kidney stone. She has a history kidney stones. Denies any dysuria, hematuria. History of appendectomy and had a basket retrieval of a kidney stone previously. No fever, chills, back pain, flank pain, chest pain, shortness a breath. She endorses nausea without vomiting. She presents in police custody and in handcuffs. Related Data Home Medications ?Medication ?Instructions ?Recorded ?Confirmed ?Last Taken ?Type No Home Medications 02/24/19 02/24/19 Unknown History Allergies Allergy/AdvReac Type Severity Reaction Status Date / Time No Known Allergies Allergy Verified 02/24/19 04:55 Review of Systems Review of Systems: As reviewed above in HPI [facility] Past Medical History Medical History Breast implant leak Narcotic abuse snorts fentanyl, last used yesterday Surgical History Surgical History History of lumpectomy History of appendectomy Family History Family History Mother Cancer Father Acute myocardial infarction Sibling First degree murder Other Breast cancer Social History Social History Social History: The patient stated that she is living in the home that she grew up in and her mother moved out. She has 3 adult children. She is currently working at a [employer]. She has no power document review attorney. She is a full code. Patient told me that the drugs that were in her rectum did not belong to her and that she had not used drugs in many years since she was a teenager. She she told me that she has been in trouble for drugs in the past. She showed ER that she last used fentanyl yesterday. She is twice. Smoking packs per day: 1 Smoking cigarettes per day: 20.0 Years smoked: 18 Smoking pack-years: 18.00 Smoking status: Current every day smoker Tobacco type: cigarettes Alcohol intake: never Substance use: current Substance use type: tranquilizers Other substance usage details: Fentanyl Living arrangements: with family Gender identity (if verbalized by the patient): Female Spiritual care concerns: No Agree to blood products: Yes Exam Narrative: GENERAL: Disheveled but not any distress HEAD: [Normocephalic, atraumatic.] EYES: Left eye appears chronically blind, otherwise pupil 2 mm reactive on the right, extraocular movements intact ENT: Nares clear, no rhinorrhea or epistaxis. Mucous membranes moist. NECK: Supple. CHEST: [Clear to auscultation. No respiratory distress.] HEART: [Regular rate and rhythm]. No murmur heard. [Normal peripheral pulses.] ABDOMEN: [Soft, nondistended], [nontender], [No rigidity or guarding] EXTREMITIES: Normal range of motion. [No edema.] SKIN: Warm, dry, no rash. NEURO: [No focal deficits]. Alert and oriented [x3.] PSYCH: [Normal mood and affect.] Course Vital Signs Vital signs: Vital Signs Temperature 36.8 C 06/20/24 00:01 Pulse Rate 110 H 06/20/24 00:01 Respiratory Rate 20 06/20/24 00:01 Blood Pressure 171/99 H 06/20/24 00:01 Pulse Oximetry 98 06/20/24 00:01 Oxygen Delivery Room Air 06/20/24 00:01 Temperature 36.8 C 06/20/24 00:01 Pulse Rate 93 06/20/24 02:12 Respiratory Rate 17 06/20/24 02:12 Blood Pressure 163/88 H 06/20/24 02:12 Pulse Oximetry 99 06/20/24 02:12 Oxygen Delivery Room Air 06/20/24 00:01 MDM - Abdominal Pain MDM Narrative Medical decision making narrative: 59-year-old female presenting with right-sided abdominal pain. She presents in police custody and they are requesting medical clearance. Patient has been complaining of pain for 1 week and states it feels similar to her previous kidney stone. She is not any distress, afebrile with no urinary complaints. Soft nontender nondistended abdomen. She is disheveled appearing and in police custody. Given reassuring examination suspicion is low acute abdominal emergency such as cholecystitis, bowel obstruction, diverticulitis, ureteral obstruction or calculus. We will evaluate with laboratory studies and urinalysis. Urine drug screen alcohol level added on as well. Patient was provided Pepcid, Maalox, Zofran and fluid bolus. Patient was re-evaluated after interventions. Patient re-evaluated after initial interventions and had significant improvement in her symptoms. Workup was reassuring. No leukocytosis or anemia. Normal platelet count. Electrolytes are unremarkable. Normal creatinine, normal glucose, normal LFTs. Normal lipase failure. No signs of infection or blood in the urine. Negative test. Patient tested positive for amphetamines, negative alcohol level. Patient is safe and stable for discharged into police custody at this time given unremarkable workup and reassuring vitals with improvement after medications. Medical Records Attestation: I reviewed the patient's medical records. Lab Data Attestation: I reviewed the patient's lab results. 06/20/24 00:19 06/20/24 00:19 Labs: Lab Results 06/20/24 06/20/24 06/20/24 Range/Units 00:19 00:25 02:01 WBC 6.1 (4.5-10.0) K/mm3 RBC 4.50 (4.2-5.4) M/mm3 Hgb 13.3 (12.0-15.0) g/dL Hct 39.6 (37.0-47.0) % MCV 88.0 (80-100) fl MCH 29.6 (26-34) pg MCHC 33.6 (32-36) g/dl RDW 13.2 (11.5-14.5) % Plt Count 198 (150-375) k/mm3 MPV 9.1 (7.4-10.4) fl Immature Gran % (Auto) 0.2 (0-0.5) % Neut % (Auto) 74.5 H (45.5-73.1) % Lymph % (Auto) 15.7 L (18.3-44.2) % Camp % (Auto) 7.6 (2.6-8.5) % Eos % (Auto) 1.0 (0-4.4) % Baso % (Auto) 1.0 (0.2-1.2) % Lymph # (Auto) 0.95 (0.9-3.2) K/mm3 Camp # (Auto) 0.5 (0.1-0.6) K/mm3 Eos # (Auto) 0.1 (0-0.3) K/mm3 Baso # (Auto) 0.1 (0.0-0.1) K/mm3 Abs Immat Gran (auto) 0.01 (0.00-0.031) K/mm3 Absolute Neuts (auto) 4.5 (1.3-6.7) K/mm3 Absolute Nucleated RBC 0.000 (0.0-0.012) K/mm3 Nucleated RBC % 0.0 (0.0-0.2) % Sodium 138 (137-145) mmol/L Potassium 4.1 (3.4-5.0) mmol/L Chloride 103 (98-107) mmol/L Carbon Dioxide 25 (22-30) mmol/L Anion Gap 10 (4-12) mmol/L BUN 20 H (7-17) mg/dL Creatinine 0.82 (0.7-1.0) mg/dL Estim Creat Clear Calc 56 ml/min Estimated GFR > 60 (59 - ) Glucose 116 H (65-110) mg/dL Calcium 9.2 (8.4-10.2) mg/dL Total Bilirubin 0.5 (0.2-1.3) mg/dL AST 23 (14-36) U/L ALT 12 (6-35) U/L Alkaline Phosphatase 80 (38-126) U/L Total Protein 8.0 (6.3-8.2) g/dL Albumin 4.5 (3.5-5.1) g/dL Lipase 47 (23-300) U/L Urine Color Yellow (Yellow) Urine Appearance Clear (Clear) Urine pH 6.0 (5.0-9.0) Ur Specific [place] 1.022 (1.001-1.035) Urine Protein Negative (Negative) mg/dL Urine Glucose (UA) Negative (Negative) mg/dL Urine Ketones Negative (Negative) mg/dL Ur Blood (Man) Negative (Negative) Urine Nitrate Negative (Negative) Urine Bilirubin Negative (Negative) Urine Urobilinogen 1.0 (<2.0) mg/dL Leukocyte Esterase Rfl Negative (Negative) YESSENIA/UL POC Urine HCG, Qual (Negative) Urine Opiates Screen Negative (Negative) Urine Methadone Screen Negative (Negative) Ur Barbiturates Screen Negative (Negative) Ur Phencyclidine Scrn Negative (Negative) Ur Amphetamine Screen Positive A (Negative) U Benzodiazepines Scrn Negative (Negative) Urine Cocaine Screen Negative (Negative) U Cannabinoids Screen Negative (Negative) Ethyl Alcohol < 10 (<10) mg/dL 06/20/24 Range/Units 02:04 WBC (4.5-10.0) K/mm3 RBC (4.2-5.4) M/mm3 Hgb (12.0-15.0) g/dL Hct (37.0-47.0) % MCV (80-100) fl MCH (26-34) pg MCHC (32-36) g/dl RDW (11.5-14.5) % Plt Count (150-375) k/mm3 MPV (7.4-10.4) fl Immature Gran % (Auto) (0-0.5) % Neut % (Auto) (45.5-73.1) % Lymph % (Auto) (18.3-44.2) % Camp % (Auto) (2.6-8.5) % Eos % (Auto) (0-4.4) % Baso % (Auto) (0.2-1.2) % Lymph # (Auto) (0.9-3.2) K/mm3 Camp # (Auto) (0.1-0.6) K/mm3 Eos # (Auto) (0-0.3) K/mm3 Baso # (Auto) (0.0-0.1) K/mm3 Abs Immat Gran (auto) (0.00-0.031) K/mm3 Absolute Neuts (auto) (1.3-6.7) K/mm3 Absolute Nucleated RBC (0.0-0.012) K/mm3 Nucleated RBC % (0.0-0.2) % Sodium (137-145) mmol/L Potassium (3.4-5.0) mmol/L Chloride (98-107) mmol/L Carbon Dioxide (22-30) mmol/L Anion Gap (4-12) mmol/L BUN (7-17) mg/dL Creatinine (0.7-1.0) mg/dL Estim Creat Clear Calc ml/min Estimated GFR (59 - ) Glucose (65-110) mg/dL Calcium (8.4-10.2) mg/dL Total Bilirubin (0.2-1.3) mg/dL AST (14-36) U/L ALT (6-35) U/L Alkaline Phosphatase (38-126) U/L Total Protein (6.3-8.2) g/dL Albumin (3.5-5.1) g/dL Lipase (23-300) U/L Urine Color (Yellow) Urine Appearance (Clear) Urine pH (5.0-9.0) Ur Specific [place] (1.001-1.035) Urine Protein (Negative) mg/dL Urine Glucose (UA) (Negative) mg/dL Urine Ketones (Negative) mg/dL Ur Blood (Man) (Negative) Urine Nitrate (Negative) Urine Bilirubin (Negative) Urine Urobilinogen (<2.0) mg/dL Leukocyte Esterase Rfl (Negative) YESSENIA/UL POC Urine HCG, Qual Negative (Negative) Urine Opiates Screen (Negative) Urine Methadone Screen (Negative) Ur Barbiturates Screen (Negative) Ur Phencyclidine Scrn (Negative) Ur Amphetamine Screen (Negative) U Benzodiazepines Scrn (Negative) Urine Cocaine Screen (Negative) U Cannabinoids Screen (Negative) Ethyl Alcohol (<10) mg/dL Discharge Plan Discharge Clinical Impression: Abdominal pain, Amphetamine use Patient Disposition: Home Condition: Stable Instructions: Antibiotic Form, Abdominal Pain (ED) Additional Instructions: Follow-up with regular doctor, all your laboratory studies are normal. Refrain from using any drugs or illicit substances. Patient Language: Cypriot Prescriptions: No Action No Home Medications Time of Disposition: 03:49
--- OUTSIDE RECORDS SUMMARY | 2024-06-20 00:23 | XMS_ITS | Referral Summary ---
Author Organization [facility] Address [address] [place] [address] Care Team Providers Care Wood Pile Driver Operator Name Role Phone Eveline Leal MD Primary Care Provider [phone] Encounters Date Type Department Care Team Description 05/30/2024 3:30 PM CDT Office Visit [facility] [address] [place] [address] Margaret Epstein MD PhD Corneal edema (Primary Dx) 05/22/2024 Telephone [facility] [address] [place] [address] Margaret Epstein MD PhD Follow Up Appointment 04/03/2024 Documentation [facility] [address] [place] [address] Fischer, Marisol, CREDIT PRODUCT ANALYST from Last 3 Months Allergies No known active allergies Medications buprenorphine (SUBUTEX) 2 mg tablet, sublingual Place 2 tablets (4 mg total) under the tongue 2 (two) times a day 28 tablet 01/10/20 23 Active ibuprofen (ADVIL,MOTRIN) 600 mg tablet Take 1 tablet (600 mg total) by mouth every 6 (six) hours as needed for pain for up to 30 doses 30 tablet 04/30/19 24 Active umeclidinium-vilan teroL (ANORO ELLIPTA) 62.5-25 mcg/actuation blister with device Inhale 1 puff daily 1 each 2 12/14/19 24 Active umeclidinium-vilan teroL (ANORO ELLIPTA) 62.5-25 mcg/actuation blister with device Inhale 1 puff daily 30 each 12/14/19 24 Active glecaprevir-pibren tasvir (MAVYRET) 100-40 mg tablet per tabletIndications: Viral Hepatitis C Take 3 tablets by mouth daily take with food 168 tablet 12/24/19 24 Active prednisoLONE acetate (PRED FORTE) 1 % ophthalmic suspension SHAKE LIQUID AND INSTILL 1 DROP IN BOTH EYES THREE TIMES DAILY 5 mL 1 01/04/20 24 Active latanoprost (XALATAN) 0.005 % ophthalmic solution Administer 1 drop into the left eye nightly 2.5 mL 3 01/31/20 24 Active valACYclovir (VALTREX) 500 mg tablet Take 1 tablet (500 mg total) by mouth 3 (three) times a day 30 tablet 02/01/20 24 Active cyclopentolate (CYCLOGYL) 1 % ophthalmic solution Administer 1 drop into the right eye 2 (two) times a day 5 mL 2 02/01/20 24 Active ondansetron ODT (ZOFRAN-ODT) 4 mg disintegrating tablet Take 1 tablet (4 mg total) by mouth every 8 (eight) hours as needed for nausea or vomiting 20 tablet 02/01/20 24 Active moxifloxacin (VIGAMOX) 0.5 % ophthalmic solution Administer 1 drop into the right eye every 1 (one) hour 5 mL 1 02/04/20 24 Active sodium chloride (DINA 128) 5 % ophthalmic solution Administer 1 drop into the right eye 4 (four) times a day 15 mL 11 05/31/19 25 Active sodium chloride (DINA 128) 5 % ophthalmic solution Administer 1 drop into both eyes 3 (three) times a day 01/18/20 24 025 Discontin ued(Reord er) Active Problems Problem Noted Date Diagnosed Date 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 Add Vigamox Q1H right eye (OD). Continue Dina 128- hold Pred until evaluated w cornea tomorrow morning Fuchs' corneal dystrophy of both eyes 01/31/2024 Assessment & Plan (01/31/2024 4:21 PM CAMERA STORAGE CLERK): HM eye left eye (OS) longstanding with with scarring. Now with severe edema right eye (OD) and central epithelial defect. Okay to hold Pred this evening, continue Dina 128. Add Vigamox Q1H right eye (OD). Educated on findings and stressed severity and need for very close follow up. Discussed case with cornea fellow. Pt to be seen early tomorrow morning for evaluation. Pt denies history of cold sores, hold on Valtrex for now. Previous concern for syphilis etiology, monitoring RPR. Cornea tomorrow Ocular hypertension of left eye 01/31/2024 Assessment & Plan (01/31/2024 4:22 PM CAMERA STORAGE CLERK): Elevated intraocular pressure (IOP) left eye (OS) today, will add Latanoprost at bedtime (QHS) left eye (OS) for now. To be seen by cornea tomorrow. Previous chart review notes possible benefit of penetrating keratoplasty (PKP) left eye (OS) Sepsis with acute hypoxic re spiratory failure without septic shock 12/12/2023 Pneumonia due to human metapneumovirus 4 Sepsis with acute hypoxic re spiratory failure without septic shock, due to unspecified organism 12/12/2023 Blindness of left eye 01/27/2023 Polysubstance abuse 01/08/2023 Acute respiratory failure with hypoxia 3 UTI (urinary tract infection) 01/08/2023 Pneumonia of right upper lobe due to infectious organism 01/05/2023 Rhus dermatitis 08/01/2022 Pruritic dermatitis 08/01/2022 Immunizations Immunization Administration Dates Next Due Influenza, Quadrivalent, Spl it, Preservative Free, Intramuscular 01/09/2023 Pneumococcal Conjugate Pcv20 12/24/2023 Social History Tobacco Use Types Packs/Day Years Used Date Smoking Tobacco: Every Day Cigarettes Smokeless Tobacco: Never Tobacco Cessation:Ready to Q uit: Not Asked; Counseling Given: Not Answered Personal Safety Answer Date Recorded Have you ever been in or are you currently in a harmful physical or emotional relationship or is someone making you feel afraid or unsafe? Denies 12/12/2023 Comments No Sex and Gender Information Value Date Recorded Sex Assigned at Not on file Legal Sex Female 1:50 PM CDT Gender Identity Not on file Sexual Orientation Not on file Last Filed Vital Signs Vital Sign Reading Time Taken Comments Blood Pressure 101/69 12/24/2023 1:38 PM CDT Pulse 97 12/24/2023 1:38 PM CDT Temperature 36.3 C (97.4 F) 12/24/2023 1:38 PM CDT Respiratory Rate 22 12/14/2023 10:00 AM CDT Oxygen Saturation 97% 12/24/2023 1:38 PM CDT Inhaled Oxygen Concentration - - Weight 61.5 kg (135 lb 9.6 oz) 12/24/2023 1:38 P M CDT Height 162.6 cm (5' 4.02 ) 12/24/2023 1:38 PM CD T Body Mass Index 23.26 12/24/2023 1:38 PM CDT Plan of Treatment Not on file Procedures Procedure Name Priority Date/Time Associated Diagnosis Comments HEPATITIS C ANTIBODY Routine 12/13/2023 12:40 AM CDT from Last 3 Months or Most Recently Relevant to Health Maintenance Results * (ABNORMAL) Hepatitis C antibody Blood (12/13/2023 12:40 AM CDT) Hep C Ab Reactive( A) Nonreactive Comment: Reactive for HCV antibodies. This may represent current or past HCV infection. Supplemental molecular testing will be automatically performed to determine current infection status in accordance with current CDC screening recommendations. Current interpretive data was last revised on 21 Blood 12/13/2023 12:4 0 AM CDT 12/13/2023 1:00 AM CDT us Ronna Quinn MD LAB MICROBIOLOGY - GENERAL ORDERABLES Final Result [facility] [address] [facility] Department of Laboratories [place], [place] [id number] from Last 3 Months or Most Recently Relevant to Health Maintenance Insurance [facility] Advance Directives For more information, please contact: [phone] * Full Code (Latest Code Status on File) Date Activated Date Inactivated Comments 12/12/2023 11:49 PM 12/14/2023 3:27 PM * Full Code Date Activated Date Inactivated Comments 01/05/2023 4:11 AM 01/09/2023 4:02 PM Care Teams Wood Pile Driver Operator Relationship Specialty Start Date End Date Eveline Leal MD [address] [place] [address] PCP - General Internal Medicine 12/13/23
--- OUTSIDE RECORDS SUMMARY | 2024-06-20 00:23 | XMS_ITS | Clinical Summary ---
Author Organization [facility] Address [facility] [place] [address] Care Team Providers Care Director Case Name Role Phone Eveline Leal MD Primary Care Provider [phone] Allergies No known active allergies Medications buprenorphine [...] 01/31/2024 Assessment & Plan (01/31/2024 4:24 PM TACK PULLER): Central round epi defect without infiltrate. Add Vigamox Q1H right eye (OD). Continue Dina 128- hold Pred until evaluated w cornea tomorrow morning Fuchs' corneal dystrophy of both eyes 01/31/2024 Assessment & Plan (01/31/2024 4:21 PM TACK PULLER): HM eye left eye (OS) longstanding with [...] 01/31/2024 Assessment & Plan (01/31/2024 4:22 PM TACK PULLER): Elevated intraocular pressure (IOP) left eye (OS) today, will add Latanoprost at bedtime (QHS) left eye (OS) for now. To be seen by cornea tomorrow. Previous chart review notes possible benefit of penetrating keratoplasty (PKP) left eye (OS) Sepsis with acute hypoxic re spiratory failure without septic shock 12/12/2023 Pneumonia due to human metapneumovirus Sepsis with acute hypoxic re spiratory failure without septic shock, due to unspecified organism 12/12/2023 Blindness of left eye 01/27/2023 Polysubstance abuse 01/08/2023 Acute respiratory failure with hypoxia UTI (urinary tract infection) 01/08/2023 Pneumonia of right upper lobe due to infectious organism 01/05/2023 Rhus dermatitis 08/01/2022 Pruritic dermatitis 08/01/2022 Encounters Date Type Department Care Team Description 05/30/2024 3:30 PM CDT Office Visit [facility] [address] [place] [address] Margaret Epstein MD PhD Corneal edema (Primary Dx) 05/22/2024 Telephone [facility] [address] [place] [address] Margaret Epstein MD PhD Follow Up Appointment 04/03/2024 Documentation [facility] [address] [address] [facility] [place] [address] Marisol Fischer CNS from Last 3 Months Immunizations Immunization Administration Dates Next Due Influenza, [...] on file Sexual Orientation Not on file Obstetrics History Last Filed Vital Signs Vital Sign Reading [...] 12/24/2023 1:38 PM CDT Plan of Treatment Health Maintenance Due Date Last Done Comments Breast Cancer Screening-Mammogram 1966 Cervical Cancer Screening 1966 Colon Cancer Screening-Colonoscopy 1966 Depression Screening 1966 DTaP/Tdap/Td Vaccine (1 - Tdap) 1977 Regular Well Visit/Exam 18-64 02/22/1984 Zoster Vaccine (1 of 2) 02/22/2016 Covid-19 Vaccine (3 - 2023-2 5 season) 2023 06/20/2020, 05/23/2020 Influenza Vaccine (Season Ended) 2024 01/10/20 23 Hepatitis B Screening Completed 12/13/2023 Hepatitis C Screening Completed 12/24/2023 , 12/13/2023, 12/13/2023, Additional history exists Pneumococcal vaccine <65 Completed 12/24/2023 Procedures Procedure Name Priority Date/Time Associated Diagnosis [...] MICROBIOLOGY - GENERAL ORDERABLES Final Result [facility] Department [place] [address] from Last 3 Months or Most Recently Relevant to Health Maintenance Insurance [facility] Advance Directives For more information, please contact: [phone] * Full Code (Latest Code Status on File) Date Activated Date Inactivated Comments 12/12/2023 11:49 PM 12/14/2023 3:27 PM * Full Code Date Activated Date Inactivated Comments 01/05/2023 4:11 AM 01/09/2023 4:02 PM Care Teams Director Case Relationship Specialty Start Date End Date Eveline Leal MD [address] [place] [address] PCP - General Internal Medicine 12/13/23
--- OUTSIDE RECORDS SUMMARY | 2024-06-20 00:23 | XMS_ITS | Continuity of Care Document ---
Author Organization [facility] Address [address] [email or web address] [address] Phone Care Team Providers Care Electric Serviceman Name Role Phone Quentin Cooper MD Unavailable Unavailable Allergies, Adverse Reactions, Alerts Substance Reaction Status Criticality No Known Allergies Active No Inform ation Medications Medication Instructions Dosage Effective Dates (start - stop) Status Comments Valium 5 mg tablet take 1 tablet by oral route 2 times every day as needed 5 MG - Active PRn for anxi ety, avoid driving or operate machines Neurontin 300 mg capsule take 1 capsule by oral route 3 times every day 300 MG - Active avoid driving or operate machines Lexapro 20 mg tablet take 1 tablet by oral route every day 20 MG - Active Procedures Procedure Date OFFICE/OUTPATIENT VISIT, EST PREV VISIT, NEW, AGE 40-64 OFFICE/OUTPATIENT VISIT, [facility] Advance Directives Directive Yes / No Effective Date File Name No Information Encounters Encounter Description Practice Location Reason(s) For Visit Diagnoses Date Provider Providers Copied on Encounter OFFICE/OUTPA TIENT VISIT, EST [facility], [address] [place], [id number], [place] tel:[phone] [facility] Medicine IBS (chief complaint) IBS1 (chief complaint) chronic pain1 (chief complaint) anxiety1 (chief complaint) Irritable bowel syndromeChronic pain syndromeGeneralized Anxiety DisorderEncounter for oth screening for malignant neoplasm of breast [address], [place], [place], [id number] , [place]. tel:[phone] Referring Provider: Quentin Cooper, [address], [place], [place], [id number]. tel:[phone] PREV VISIT, NEW, AGE 40-64 [facility], [address], [place], [place], [id number], [place] tel:[phone] [facility] Medicine PHysical (chief complaint) Chronic pain syndromeGeneralized Anxiety DisorderEncounter for general adult medical exam w abnormal findingsIrritable bowel syndrome [address], [place], [place], [id number] , [place]. tel:[phone] Referring Provider: Quentin Cooper, [address], [place], [place], [id number]. tel:[phone] Family History Family Member Type Diagnosis Age At Onset Mother Problem (finding) Alive and well Sister Problem (finding) of breast CA (Caus e Of ) 58 Father Problem (finding) of CAD 57 (Cause O f ) 57 Father Problem (finding) colon CA 55 Payers Payer name Insurance type Covered libertarian ID Authoriza tion(s) No Information Social History Type Description Quantity Date Captured Comments Alcohol Use Details No Caffeine Use Details Unknown Tobacco Use Status Cigarette smoker Smoking Status Heavy tobacco smoker Smoking Tobacco Use Details Cigarette: No Details Available Cigarette: 1.25 Packs per day Sex Female Vital Signs Date / Time: Height Weight BMI Pulse Rate Blood Pressure Temperature Respiratory Rate Body Surface Area Head Circumference BMI percentile Pulse Ox Inhaled Ox 3:40 PM 64.00 in 160.00 lbs 27.4 6 kg/m eter (2) 78 /min 124/72 mm[Hg] 97.4 F 16 /min Chief Complaint And Reason For Visit From encounter dated '01/05/2018 13:30'. IBS (chief complaint) IBS1 (chief complaint). Description: Pt has intermittent nausea, abdominal cramp and also nonbloodydiarrhea.. Pt states that zantac does not help. Pt has gutierrez with GI in two weeks. pt feels that her GI symptoms are due to anxiety chronic pain1 (chief complaint). Description: Pt has chronic neck and back pain pt denies any sciatica or any sciatica pt has hand and leg tingling sometimes Pt states that neurontin is helping slightly anxiety1 (chief complaint). Description: Pt has chronic anxiety and depression. pt states that lexapro and buspar has not helped at all for her symptoms. Pt wanted to try benzo. Pt feels anxious all the time. Pt feels shaky and she cannot stop crying at home. Pt denies any suicidal or homicidal thought Plan Of Treatment Date Type Action Status Goal Tobacco cessation counseling completed Goal Special diet education compl eted Goal Special diet education compl eted Referral Ordered: Gastroenterology (related to Encntr for general adult medical exam w/o abnormal findings) ordered Referral Ordered: Referrals: Gastroenterology. Evaluate and treat ordered Referral Ordered: MAMMOGRAM, SCREENING ordered History Of Present Illness Encounter Date Complaint History Of Prese nt Illness anxiety1 Pt has chronic a nxiety and depression. pt states that lexapro and buspar has not helped at all for her symptoms. Pt wanted to try benzo. Pt feels anxious all the time. Pt feels shaky and she cannot stop crying at home. Pt denies any suicidal or homicidal thought chronic pain1 Pt has chronic n augustus and back pain pt denies any sciatica or any sciatica pt has hand and leg tingling sometimes Pt states that neurontin is helping slightly IBS1 Pt has intermitt ent nausea, abdominal cramp and also nonbloody diarrhea.. Pt states that zantac does not help. Pt has gutierrez with GI in two weeks. pt feels that her GI symptoms are due to anxiety IBS PHysical Pt needs annual physical Pt has chronic anxiety and depression. Pt has a lot of stress. Pt wants to try valium for now. Pt has crying spells. Pt does NOT want to try SSRIs since her daughter was like a zombie with SSRis. Pt denies any suicidal or homicidal thought. Pt has chronic low back pain. Pt has sciatica and bilateral leg numbness and tingling .Pt also has neck pain Pt was on opioid in the past but she does not want to go back to opioid anymore Pt has not had opioid for several months. Pt just moved here from [place] 10 months ago and she has not seen MD yet. Pt has chronic nonbloody diarrhea and nausea when she feels stressed pt denies any GERD. Pt feels nausea with food with postprandial nausea. for one year. Pt denies any abdominal pain. Instructions Date Instruction Additional Infor mation Special diet education Related t o Body mass index (BMI) 27.0-27.9, adult Quit smoking Related to Irrit able bowel syndrome Quit smoking Related to Encou nter for general adult medical exam w abnormal findings Special diet education Related t o Body mass index (BMI) 26.0-26.9, adult Assessments Type Assessment Date assessment Irritable bowel syndrome 2017 assessment Chronic pain syndrome 8 assessment Generalized Anxiety Disorder Dec assessment Encounter for oth screening for malignant neoplasm of breast Mental Status Date Cognitive Assessment Orientation - [place] ed to time, place, person, situation.
[2024-06-20 00:25] LABS: Basophils Absolute Auto 0.1 K/mm3 (0.0-0.1); Eosinophils Absolute Auto 0.1 K/mm3 (0-0.3); Hematocrit 39.6 % (37.0-47.0); Hemoglobin 13.3 g/dL (12.0-15.0); Immature Granulocyte Absolute 0.01 K/mm3 (0.00-0.031); Immature Granulocyte Percent A 0.2 % (0-0.5); Lymphocytes Absolute Auto 0.95 K/mm3 (0.9-3.2); Lymphocytes Percent Auto 15.7 % (18.3-44.2); Mean Corpuscular HGB Conc 33.6 g/dl (32-36); Mean Corpuscular Hemoglobin 29.6 pg (26-34); Mean Platelet Volume 9.1 fl (7.4-10.4); Monocytes Absolute Auto 0.5 K/mm3 (0.1-0.6); Monocytes Percent Auto 7.6 % (2.6-8.5); Neutrophils Absolute Auto 4.5 K/mm3 (1.3-6.7); Neutrophils Percent Auto 74.5 % (45.5-73.1); Platelet Count Result 198 k/mm3 (150-375); Red Cell Distribution Width 13.2 % (11.5-14.5); White Blood Count 6.1 K/mm3 (4.5-10.0)
[2024-06-20 00:35] LABS: Alanine Aminotransferase 12 U/L (6-35); Albumin Level 4.5 g/dL (3.5-5.1); Alkaline Phosphatase 80 U/L (38-126); Anion Gap 10 mmol/L (4-12); Aspartate Amino Transferase 23 U/L (14-36); Bilirubin,Total 0.5 mg/dL (0.2-1.3); Blood Urea Nitrogen 20 mg/dL (7-17); Calcium 9.2 mg/dL (8.4-10.2); Carbon Dioxide 25 mmol/L (22-30); Chloride 103 mmol/L (98-107); Estimated CRCL calculation 56 ml/min; Estimated Glomerular Filt Rate > 60; Glucose 116 mg/dL (65-110); Lipase 47 U/L (23-300); Potassium 4.1 mmol/L (3.4-5.0); Sodium 138 mmol/L (137-145)
[2024-06-20 00:42] LABS: Ethanol < 10 mg/dL (<10)
[2024-06-20] MEDS: LACTATED RINGERS 1,000 ML 999 ML IV CONT (01:20)
[2024-06-20] MEDS: MAG HYDROX/AL HYDROX/SIMETH 30 ML UDC PO (01:21)
[2024-06-20] MEDS: FAMOTIDINE 20 MG/2 ML VIAL IV PUSH (01:21)
[2024-06-20] MEDS: ONDANSETRON INJ 4 MG/2 ML VIAL IV PUSH (01:22)
[2024-06-20 02:06] LABS: BEDSIDEPREGUCG Negative (Negative)
[2024-06-20 02:09] LABS: Add Urine Microscopic? NO; Appearance Urine Clear (Clear); Bilirubin Urine Negative (Negative); Blood Urine Negative (Negative); Color Urine Yellow (Yellow); Glucose Urine UA Negative (Negative); Ketones Urine Negative (Negative); Leukocyte Esterase Ur Negative LEU/UL (Negative); Nitrate Urine Negative (Negative); Protein Urine Negative (Negative); Specific Grav Ur 1.022 (1.001-1.035)
[2024-06-20 02:12] VITALS: BP 163/88; PULSE 93; RESP 17; O2SAT 99
[2024-06-20 02:27] LABS: Barbiturate Screen Urine Negative (Negative); Benzodiazepines Screen Urine Negative (Negative)
[2024-06-20 02:52] LABS: Cannabinoid Screen Urine Negative (Negative); Cocaine Screen Urine Negative (Negative); Methadone Screen Urine Negative (Negative); Opiate Screen Urine Negative (Negative); Phencyclidine Screen Urine Negative (Negative)
[2024-06-20 03:33] LABS: Amphetamine Screen Urine Positive (Negative)
[2024-06-20 04:24] VITALS: BP 159/83; PULSE 86; RESP 16; O2SAT 97
[2024-06-20 04:25] VITALS: BP 159/83; PULSE 86; RESP 16; O2SAT 97
== END 2024-06-20 04:27 ==
PROVIDERS: Emergency Provider Student in an Organized Health Care Education/Training Program
DX: R10.9 Unspecified abdominal pain (principal); F15.90 Other stimulant use, unspecified, uncomplicated; F17.210 Nicotine dependence, cigarettes, uncomplicated; Z87.442 Personal history of urinary calculi
CPT/HCPCS: 36415; 80053; 80307; 81003; 81025; 82077; 83690; 85025; 96361; 96374; 96375; 99284; A9270; J2405; J7120